=== PATIENT | female | born 1980 | race Two or more races ===

== ENCOUNTER → 2021-11-05 | Outpatient (CLI) | payer BC ==
[2021-11-05 11:59] LABS: BASOPHILS % 1.1 % (0.0-2.0); EOSINOPHILS % 1.8 % (0.0-5.0); HEMATOCRIT. 26.8 % (36.0-48.0); HEMOGLOBIN. 7.9 g/dL (12.0-16.0); LYMPHOCYTES % 35.3 % (20.0-50.0); MEAN CORPUSCULAR HEMOGLOBIN 16.3 pg (28.0-32.0); MEAN CORPUSCULAR VOLUME 55.3 fL (81.0-99.0); MEAN PLATELET VOLUME 8.5 fl (7.4-10.4); MONOCYTES % 5.9 % (2.0-8.0); NEUTROPHILS % 55.9 % (40.0-76.0); PLATELET 346 x1000/uL (130-400); RED BLOOD CELL COUNT 4.84 mill/uL (4.2-5.4); RED CELL DISTRIBUTION WIDTH 20.5 % (11.6-14.6)
[2021-11-05 12:06] LABS: CHLORIDE 108 mEq/L (98-107)
[2021-11-05 12:17] LABS: T4 FREE 0.81 ng/dL (0.76-1.46)
[2021-11-05 12:19] LABS: HDL CHOLESTEROL 51 mg/dL (40-59)
[2021-11-05 12:20] LABS: LDL CHOLESTEROL 88 mg/dL (5-100)
[2021-11-05 13:24] LABS: PLATELET ESTIMATE NORMAL
== END | disposition home or self-care (01) ==
LOC: LAB 11:19
PROVIDERS: ATTEND Internal Medicine
DX: Z13.1 Encounter for screening for diabetes mellitus (principal); E03.9 Hypothyroidism, unspecified; Z13.0 Encounter for screening for diseases of the blood and blood-forming organs and certain disorders involving the immune mechanism; Z13.220 Encounter for screening for lipoid disorders; Z13.29 Encounter for screening for other suspected endocrine disorder; Z00.00 Encounter for general adult medical examination without abnormal findings
CPT/HCPCS: 36415; 80053; 80061; 83036; 84436; 84439; 84443; 84480; 84481; 85025